=== PATIENT | female | born 2000 | race Caucasian/White ===

== ENCOUNTER 2025-05-01 14:26 | Emergency (ER) | payer MEDICAID, SELFPAY ==
[2025-05-01 14:27] VITALS: BMI 28.3
[2025-05-01 14:56] VITALS: BP 119/79; PULSE 88; RESP 16; TEMP 37; O2SAT 100
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
--- NOTE | 2025-05-01 16:28 | PC.NURSE ---
CALLED PATIENT IN THE LOBBY AND OUTSIDE, NO ANSWER RECEIVED.
--- NOTE | 2025-05-01 16:36 | PC.NURSE ---
CALLED PATIENT IN THE LOBBY AND OUTSIDE, NO ANSWER RECIEVED.
--- NOTE | 2025-05-01 17:03 | PC.NURSE ---
CALLED PATIENT IN THE LOBBY AND OUTSIDE, NO ANSWER RECEIVED.
== END 2025-05-01 17:04 | disposition left against medical advice (07) ==
PROVIDERS: Emergency Provider Family Medicine
DX: S00.83XA Contusion of other part of head, initial encounter (principal); Y04.0XXA Assault by unarmed brawl or fight, initial encounter; Y99.0 Civilian activity done for income or pay; Z53.29 Procedure and treatment not carried out because of patient's decision for other reasons
CPT/HCPCS: 70110; 70150; 99283